=== PATIENT | female | born 1990 | race American Indian/Alaskan Native ===

== ENCOUNTER 2019-01-05 12:14 | Observation (INO) | payer MEDICAID ==
[2019-01-05] MEDS ORDERED: LACTATED RINGERS 500 ML IV ONE (15:22)
[2019-01-05 15:47] LABS: Hematocrit 30.8 % (30.3-42.9); Hemoglobin 10.2 gm/dl (10.1-14.3); Mean Corpuscular HGB Conc 33 % (30-34); Mean Corpuscular Volume 82 fl (79-97); Platelet Count 247 K/mm3 (140-440); Red Blood Count 3.77 M/mm3 (3.65-5.03); Red Cell Distribution Width 16.9 % (13.2-15.2)
[2019-01-05 16:16] LABS: Alanine Aminotransferase 7 units/L (7-56)
[2019-01-05 16:57] LABS: Uric Acid 5.4 mg/dL (3.5-7.6)
[2019-01-05 17:54] VITALS: BP 121/66
[2019-01-05 18:30] LABS: Bilirubin,Urine NEG (Negative); Blood,Urine NEG (Negative); Color,Urine Yellow (Yellow); Mucus,Urine FEW /HPF; Protein,Urine <15 mg/dL mg/dL (Negative); Urobilinogen,Urine < 2.0 mg/dL (<2.0)
== END 2019-01-05 18:14 | disposition home or self-care (01) ==
LOC: LD 12:14 → INTOOBSV 12:14
PROVIDERS: ADMIT Obstetrics & Gynecology; ATTEND Obstetrics & Gynecology
DX: O13.3 Gestational [pregnancy-induced] hypertension without significant proteinuria, third trimester (principal); Z3A.35 35 weeks gestation of pregnancy
CPT/HCPCS: 36415; 81001; 82565; 83615; 84450; 84460; 84550; 85027; 86850; 86900; 86901; 87086; G0378; G0379

== ENCOUNTER 2019-01-19 12:02 | Inpatient (IN) | payer MEDICAID ==
[2019-01-19] MEDS ORDERED: LACTATED RINGERS 1,000 ML ONE ×2 (14:00→19:07)
[2019-01-19] MEDS ORDERED: LACTATED RINGERS 1,000 ML IV SCH ×2 (14:00→17:00)
[2019-01-19 14:01] LABS: Hematocrit 29.6 % (30.3-42.9); Mean Corpuscular HGB Conc 34 % (30-34); Mean Corpuscular Volume 80 fl (79-97); Platelet Count 220 K/mm3 (140-440); Red Blood Count 3.68 M/mm3 (3.65-5.03); Red Cell Distribution Width 17.3 % (13.2-15.2)
[2019-01-19] MEDS ORDERED: APRESOLINE IV ONE (14:05)
[2019-01-19 14:24] LABS: Alanine Aminotransferase 8 units/L (7-56); Uric Acid 5.7 mg/dL (3.5-7.6)
[2019-01-19] MEDS ORDERED: REGLAN IV SCH (16:59)
[2019-01-19] MEDS ORDERED: BICITRA PO SCH (16:59)
[2019-01-19] MEDS ORDERED: PEPCID IV SCH (16:59)
[2019-01-19] MEDS ORDERED: PITOCin/NS 20 UNIT/1000ML DRIP 20 UNITS/1,000 ML BAG IV SCH ×2 (17:00→22:22)
[2019-01-19 17:57] LABS: Bacteria,Urine 2+ /HPF (Negative); Bilirubin,Urine NEG (Negative); Blood,Urine NEG (Negative); Color,Urine Yellow (Yellow); Mucus,Urine FEW /HPF; Protein,Urine <15 mg/dL mg/dL (Negative); Urobilinogen,Urine < 2.0 mg/dL (<2.0)
[2019-01-19] MEDS ORDERED: PHENERGAN PO PRN (18:26)
[2019-01-19] MEDS ORDERED: ZOFRAN IV PRN ×2 (18:26→22:22)
[2019-01-19] MEDS ORDERED: PHENERGAN PR PRN ×2 (18:26→22:22)
[2019-01-19] MEDS ORDERED: NARCAN 0.4 MG/1 ML IV PRN ×2 (18:26→22:22)
[2019-01-19] MEDS ORDERED: BENADRYL IV PRN (18:26)
[2019-01-19] MEDS ORDERED: DILAUDID IV PRN ×2 (18:26)
--- NOTE | 2019-01-19 18:26 | Anesthesia Consultation ---
Anesthesia Consult and Med Hx Date of service: 01/19/19 - Airway Anesthetic Teeth Evaluation: Good ROM Head & Neck: Adequate Mental/Hyoid Distance: Adequate Mallampati Class: Class II Intubation Access Assessment: Probably Good - Pre-Operative Health Status ASA Pre-Surgery Classification: ASA3 - Pulmonary Hx Asthma: No COPD: No Hx Pneumonia: No - Cardiovascular System Hx Hypertension: Yes (chronic HTN) - Central Nervous System Hx Seizures: No Hx Psychiatric Problems: No - Endocrine Hx Renal Disease: No Hx End Stage Renal Disease: No Hx Insulin Dependent Diabetes: Yes Hx Hypothyroidism: No Hx Hyperthyroidism: No - Hematic Hx Anemia: No Hx Sickle Cell Disease: No - Other Systems Hx Alcohol Use: No Hx Cancer: No Hx Obesity: Yes
--- NOTE | 2019-01-19 18:26 | Anesthesia Day of Surgery ---
Anesthesia Day of Surgery - Day of Surgery Patient Examined: Yes Patient H&P Reviewed: Yes Patient is NPO: Yes
[2019-01-19] MEDS ORDERED: TORADOL IV PRN ×2 (18:27→22:22)
--- NOTE | 2019-01-19 18:29 | History and Physical Report ---
History of Present Illness Date of examination: 01/19/19 Date of admission: 01/19/19 12:02 Chief complaint: I need to have a History of present illness: Pt is a 28 year old who presents at 37 weeks for repeat due to IUGR and chronic hypertension. Pt was seen at [facility] today and delivery was recommended. Pt was originally scheduled for 02/06. She is requesting tubal ligation. Past History Past Medical History: hypertension Past Surgical History: section Family/Genetic History: none Social history: - Obstetrical History Expected Date of Delivery: 02/09/19 Actual Gestation: 37 Week(s) 0 Day(s) : 4 Para: 2 Medications and Allergies Allergies Allergy/AdvReac Type Severity Reaction Status Date / Time No Known Allergies Allergy Verified 01/05/19 15:22 Home Medications Medication Instructions Recorded Confirmed Last Taken Type Pnv with Ca,No.72/Iron/FA 1 tab PO DAILY 09/03/13 09/03/13 09/02/13 History [ Plus Tablet] 0800 Ibuprofen [Motrin 800 MG tab] 800 mg PO TID PRN #30 tablet 09/05/13 Unknown Rx oxyCODONE /ACETAMINOPHEN [Percocet 1 - 2 tab PO Q4HR PRN #30 tablet 09/05/13 U nknown Rx 5/325 mg] Furosemide [Lasix] 40 mg PO DAILY #2 tablet 09/08/13 Unknown Rx Docusate Sodium [Colace] 100 mg PO BID PRN #60 capsule 09/10/13 Unknown Rx Ibuprofen [Motrin] 800 mg PO TID PRN #30 tablet 09/10/13 Unknown Rx Labetalol [Labetalol 200mg TAB] 400 mg PO BID #90 tablet 09/10/13 Unknown Rx NIFEdipine XL [Procardia Xl] 30 mg PO QDAY #60 tablet 09/10/13 Unknown Rx oxyCODONE /ACETAMINOPHEN [Percocet 1 - 2 tab PO Q6HR PRN #30 tablet 09/10/13 Unknown Rx 5/325 mg] Ibuprofen [Motrin 800 MG tab] 800 mg PO Q8HR PRN #30 tablet 05/01/17 Unknown Rx Lidocain2.5%/Prilocai2.5% [Emla] 5 gm TP 1XW #1 tube 05/01/17 Unknown Rx oxyCODONE /ACETAMINOPHEN [Percocet 1 - 2 tab PO Q4HR PRN #30 tab 05/01/17 Unknown Rx 5/325 mg] Labetalol [Labetalol 200mg TAB] 200 mg PO BID #60 tablet 05/04/17 Unknown Rx Active Meds: Active Medications Citric Acid/Sodium Citrate (Bicitra) 30 ml PO ONCE HARRISON Stop: 01/20/19 16:58 Last Admin: 01/19/19 17:35 Dose: 30 ml Documented by: Famotidine (Pepcid) 20 mg IV ONCE HARRISON Stop: 01/20/19 16:58 Last Admin: 01/19/19 17:35 Dose: 20 mg Documented by: Lactated Ringer's (Lactated Ringers) 1,000 mls @ 125 mls/hr IV DIRECT HARRISON Last Admin: 01/19/19 14:38 Dose: 125 mls/hr Documented by: Oxytocin/Sodium Chloride (Pitocin/Ns 20 Unit/1000ml Drip) 20 units in 1,000 mls @ 0 mls/hr IV TITR HARRISON Lactated Ringer's (Lactated Ringers) 1,000 mls @ 2,250 mls/hr IV PREOP HARRISON Stop: 01/20/19 17:27 Metoclopramide HCl (Reglan) 10 mg IV ONCE HARRISON Stop: 01/20/19 16:58 Last Admin: 01/19/19 17:35 Dose: 10 mg Documented by: Review of Systems All systems: negative Constitutional: fatigue Gastrointestinal: abdominal pain Genitourinary: pelvic pain - Vital Signs Vital signs: Vital Signs Pulse BP 80 192/99 01/19/19 13:08 01/19/19 13:08 Temp Pulse Resp BP Pulse Ox 97.9 F 97 H 16 158/91 01/19/19 15:51 01/19/19 17:07 01/19/19 15:51 01/19/19 17:07 - Physical Exam Breasts: Cardiovascular: Regular rate, Normal S1, Normal S2 Lungs: Positive: Clear to auscultation, Normal air movement Abdomen: Positive: normal appearance, soft, normal bowel sounds. Negative: distention, tenderness Genitourinary (Female): Positive: normal external genitalia, normal perenium Vulva: both: normal Vagina: Positive: normal moisture. Negative: discharge Cervix: Negative: lesion, discharge Uterus: Positive: normal size, normal contour Adnexa: both: normal Anus/Rectum: Positive: normal perianal skin, heme negative. Negative: rectal mass, hemorrhoids Extremities: Deep Tendon Reflex Grade: Normal +2 - Obstetrical FHR: auscultation normal Cervical Dilatation: 0 Results Result Diagrams: 01/19/19 13:24 01/19/19 13:24 Abnormal lab results 01/19/19 01/19/19 01/19/19 Range/Units 13:24 13:24 17:44 Hgb 10.0 L (10.1-14.3) gm/dl Hct 29.6 L (30.3-42.9) % MCH 27 L (28-32) pg RDW 17.3 H (13.2-15.2) % Creatinine 0.5 L (0.7-1.2) mg/dL Lactate Dehydrogenase 226 H (91-180) units/L Urine WBC (Auto) 38.0 H (0.0-6.0) /HPF U Epithel Cells (Auto) 17.0 H (0-13.0) /HPF All other labs normal. Assessment and Plan IUP at 37 weeks here for elective repeat due to IUGR. Will admit for and tubal.
[2019-01-19] MEDS ORDERED: SUBLIMAZE ONE (18:32)
[2019-01-19] MEDS ORDERED: SODIUM CHLORIDE FLUSH SYRINGE 10 ML IV NR (19:00)
[2019-01-19] MEDS ORDERED: NACL 0.9% IR ONE (19:04)
[2019-01-19] MEDS ORDERED: WATER FOR IRRIG STERILE IR ONE (19:04)
[2019-01-19] MEDS ORDERED: NEO SYNEPHRINE/NS Syringe(OR USE) IV ONE (19:06)
[2019-01-19] MEDS: APRESOLINE IV PRN ×2 (20:45→21:17)
--- NOTE | 2019-01-19 20:48 | Procedure Note ---
OB Delivery Note - Delivery Date of Delivery: 01/19/19 Surgeon: UBALDO VALLES Estimated blood loss: 500cc - Section Preop diagnosis: repeat , desires sterilization Postop diagnosis: same section procedure: repeat low transverse, bilateral tubal ligation Disposition: PACU Complications: none Narrative: see op report - Infant A at 1 minute: 8 at 5 minutes: 9 (2337 grams) Gender: Male
[2019-01-19] MEDS: PROCARDIA XL PO SCH (21:08)
[2019-01-19] MEDS ORDERED: TYLENOL PR PRN (22:22)
[2019-01-19] MEDS ORDERED: MYLICON PO PRN (22:22)
[2019-01-19] MEDS ORDERED: D5LR 1,000 ML IV SCH (22:22)
[2019-01-19] MEDS ORDERED: SODIUM CHLORIDE FLUSH SYRINGE 10 ML IV PRN (22:22)
[2019-01-19] MEDS ORDERED: TUCKS PAD TP PRN (22:22)
[2019-01-19] MEDS ORDERED: MORPHINE IV PRN (22:22)
[2019-01-19] MEDS ORDERED: LANSINOH TP PRN (22:22)
[2019-01-19] MEDS ORDERED: MILK OF MAGNESIA PO PRN (22:22)
--- NOTE | 2019-01-19 23:11 | Post Anesthesia Evaluation ---
- Post Anesthesia Evaluation Patient Participated: Yes Airway Patent: Yes Stable Respiratory Function: Yes Nausea/Vomiting: No Temp > 96.8F: Yes Pain Manageable: Yes Adequeate Hydration: Yes Anesthesia Complications: No Block Receding Appropriately: Yes Patient on Ventilator: No
--- NOTE | 2019-01-20 01:47 | Operative Report ---
Operative Report Operative Report: The operative report for patient Jorge Lehman Date of service 01/19/2019 Preoperative diagnosis: Intrauterine at 37 weeks 2. Previous x 2 3. Chronic hypertension 4. IUGR 5. Undesired fertility Postoperative diagnosis: Same Procedure: Repeat low transverse section with bilateral tubal ligation Surgeon: Dr. Simona Brown EBL: 600 mL Urine output: 100 mL IV fluids: 1600 mL Findings: Viable male in the vertex occiput posterior position. Weight 5 lbs. 2 oz. 2337 g Apgars 8 and 9]. Otherwise normal pelvic anatomy Specimens: Portion of right and left tube Complications: None Indication: Ms. Lehman is a 28-year-old 4 para 2 who presented today to the [facility]. She was found to have new onset IUGR in addition to her chronic hypertension. Procedure: The patient was admitted to the OR with IV running and in place. She was properly identified as herself. She was given spinal anesthesia in the OR without difficulty.. She was placed in the dorsal supine position with a leftward tilt. A Long catheter was inserted. She was then prepped and draped in the normal sterile fashion. An Allis test was used to confirm adequate anesthesia. Once confirmed, the incision was made with the scalpel and carried to the underlying fascia using the scalpel and the Bovie. The fascia was incised in the midline and incision was extended bilaterally using the curved Sullivan scissors. The fascia was then dissected from the underlying rectus muscles in a series of sharp and blunt dissection using the Sullivan scissors. Muscles were in the in the midline sharply using Metzenbaum scissors and the peritoneum was entered into bluntly using the surgeon's fingers. A bladder blade was then placed into the incision to protect the bladder. Following this the bladder flap was created. Hysterotomy incision was then made in the scalpel. Upon uterine entry, the amniotic sac was ruptured for clear fluid. The was then delivered in the occiput posterior position. His mouth and nose were suctioned on the field. The cord was clamped and cut and he was handed to the waiting NICU personnel. The placenta was delivered manually and taken off the field. The uterus was then exteriorized and cleared of all clots and debris. The hysterotomy incision was then closed in a running locked fashion using 0 Vicryl. The fallopian tubes were identified and ligated in the Trion fashion tubal ligation. Prior to this the patient's desire for tubal ligation was confirmed. The abdomen was then copiously irrigated with warm normal saline. Following this the uterus was replaced into the abdominal cavity. At this point the muscles were reapproximated in the midline using individual sutures of 0 Vicryl. Following this the fascia was closed in a running fashion using 0 Vicryl. Tissue was then copiously irrigated. Skin was closed in a running fashion using 3-0 Monocryl. The sponge lap needle and instrument counts were correct 2. The patient tolerated the procedure well. She was taken to recovery in stable condition.
[2019-01-20 09:23] LABS: Hematocrit 28.2 % (30.3-42.9); Hemoglobin 9.5 gm/dl (10.1-14.3)
[2019-01-20] MEDS: PERCOCET 5/325 PO PRN ×2 (14:59→23:37)
[2019-01-20] MEDS: PROCARDIA XL PO SCH (15:03)
[2019-01-21] MEDS: PERCOCET 5/325 PO PRN ×2 (05:40→22:17)
[2019-01-21] MEDS: PROCARDIA XL PO SCH (11:00)
[2019-01-21] MEDS: PRENATAL VITAMIN PO SCH (11:51)
[2019-01-21] MEDS: FEOSOL PO SCH (11:51)
[2019-01-21] MEDS: IBUPROFEN PO PRN ×2 (11:52→22:14)
--- NOTE | 2019-01-21 14:26 | Progress Note ---
Assessment and Plan Continue Procardia 60mg XL daily. Blood pressures improved. Discharge pending return of bowel status. Subjective - Subjective Interval history: doing well on new blood pressure medicine. No complaints. denied flatus or bowel movement. Patient reports: appetite normal, voiding normally : doing well Objective - Vital Signs Latest vital signs: Vital Signs Temp Pulse Resp BP BP Pulse Ox 01/21/19 08:30 98.1 F 97 H 20 112/70 01/21/19 05:40 01/21/19 00:45 98.1 F 91 H 20 138/83 97 01/20/19 23:37 20 01/20/19 21:39 98.2 F 94 H 20 146/89 99 01/20/19 16:50 98.0 F 76 18 132/96 97 Intake and Output 01/20/19 01/21/19 01/21/19 23:59 07:59 15:59 Intake Total 1080 240 Balance 1080 240 Intake: Oral 480 240 Intake, Free Water 600 Other: Total, Intake Amount 480 240 Voiding Method Toilet # Voids Void 3 1 - Exam Incision: Present: normal (clean), dry, intact
[2019-01-22] MEDS: PRENATAL VITAMIN PO SCH (10:13)
[2019-01-22] MEDS: FEOSOL PO SCH (10:13)
[2019-01-22] MEDS: PROCARDIA XL PO SCH (10:14)
--- NOTE | 2019-01-22 11:26 | Discharge Summary ---
Providers - Providers Date of Admission: 01/19/19 12:02 Attending physician: SIMONA VALLES Primary care physician: SIMONA VALLES Hospitalization Delivery: Procedure: bilateral tubal ligation Procedure details: Date of service 01/19/2019 Preoperative diagnosis: Intrauterine at 37 weeks 2. Previous x 2 3. Chronic hypertension 4. IUGR 5. Undesired fertility Postoperative diagnosis: Same Procedure: Repeat low transverse section with bilateral tubal ligation Surgeon: Dr. Simona Valles EBL: 600 mL Urine output: 100 mL IV fluids: 1600 mL Findings: Viable male in the vertex occiput posterior position. Weight 5 lbs. 2 oz. 2337 g Apgars 8 and 9]. Otherwise normal pelvic anatomy Specimens: Portion of right and left tube Complications: None complications: none Hospital course: Procardia XL 60mg PO daily started for elevated blood pressures. Hospital course otherwise routine. Recovered well and had bowel movement prior to discharge. Will f/u in 7-10 days for BP check in office. Disposition: DC-30 STILL A PATIENT Plan - Discharge Medications Prescriptions: Docusate Sodium [Colace] 100 mg PO BID PRN #60 capsule PRN Reason: Constipation Ferrous Sulfate [Feosol 325 MG tab] 325 mg PO BID #60 tablet Ibuprofen [Motrin] 800 mg PO Q8HR PRN #40 tablet PRN Reason: Pain, Moderate (4-6) oxyCODONE /ACETAMINOPHEN [Percocet 5/325] 2 tab PO Q4HR #40 tab NIFEdipine XL [Procardia Xl] 60 mg PO QDAY 30 Days #30 tablet - Provider Discharge Summary Activity: no sex for 6 weeks, no heavy lifting 4 weeks, no strenuous exercise Additional instructions: [] Smoking cessation referral if applicable(refer to patient education folder for contact #) [] Refer to [facility] Booklet Call your doctor immediately for: * Fever > 100.5 * Heavy vaginal bleeding ( >1 pad per hour) * Severe persistent headache * Shortness of breath * Reddened, hot, painful area to leg or breast * Drainage or odor from incision. * Keep incision clean and dry at all times and follow doctor's instructions regarding bathing/showering - Follow up plan Follow up: SIMONA VALLES MD [Primary Care Provider] - 7 Days
[2019-01-22 12:58] VITALS: BP 136/88
== END 2019-01-22 13:40 | disposition home or self-care (01) | DRG 765 ==
LOC: APU 12:02 → LD 12:03 → APU 19:57 → OB 22:24
PROVIDERS: ADMIT Obstetrics & Gynecology; ATTEND Obstetrics & Gynecology
PROC: 10D00Z1 Extraction of Products of Conception, Low, Open Approach (ICD-10-PCS; principal; 2019-01-19)
PROC: 0UB70ZZ Excision of Bilateral Fallopian Tubes, Open Approach (ICD-10-PCS; 2019-01-19)
DX: O34.211 Maternal care for low transverse scar from previous cesarean delivery (principal); O10.02 Pre-existing essential hypertension complicating childbirth; O36.5930 Maternal care for other known or suspected poor fetal growth, third trimester, not applicable or unspecified; O99.214 Obesity complicating childbirth; O24.92 Unspecified diabetes mellitus in childbirth; E66.9 Obesity, unspecified; Z3A.37 37 weeks gestation of pregnancy; Z37.0 Single live birth
CPT/HCPCS: 36415; 81001; 82565; 83615; 84450; 84460; 84550; 85014; 85018; 85027; 86850; 86900; 86901; 87086; 88302; 88307; G0378; J0360; J1170; J1885; J2370; J2590; J2765; J3010; J7120; J7121